=== PATIENT | female | born 1960 | race Caucasian/White ===

== ENCOUNTER → 2017-01-21 | Outpatient (CLI) | payer OTHER ==
--- NOTE | 2017-01-22 13:04 | MM ---
Reason for exam: screening (asymptomatic). Last mammogram was performed 12 years ago. History: Patient is nulliparous. Family history of breast cancer in cousin. Physical Findings: A clinical breast exam by your physician is recommended on an annual basis and results should be correlated with mammographic findings. MG 3D Screening Mammo W/Cad Bilateral CC, MLO, and XCCL view(s) were taken. Prior study comparison: January 18, 2005, bilateral screening mammogram w/CAD. There are scattered fibroglandular densities. Partially visualized 5mm asymmetry at posterior depth on right breast 9 cm from nipple. ASSESSMENT: Incomplete: need additional imaging evaluation, BI-RAD 0 RECOMMENDATION: Special view mammogram of the right breast. If lesion persists on supplemental views, image directed ultrasound is recommended. [facility] will attempt to contact patient to return for supplemental views and ultrasound if indicated.
== END ==
LOC: RADMAMWWP 16:29
PROVIDERS: ATTEND Obstetrics & Gynecology
DX: Z12.31 Encounter for screening mammogram for malignant neoplasm of breast (principal)
CPT/HCPCS: 77063; G0202

== ENCOUNTER → 2017-11-25 | Outpatient (CLI) | payer OTHER ==
--- NOTE | 2017-11-25 19:11 | CONS ---
CONSULTATION REASON FOR CONSULTATION: Obstructive sleep apnea. Yesenia is a 57. Diagnosed having obstructive sleep apnea more than 10 years ago. Back then she was given diagnosis of mild disease and she was given apnea score between 8- 10. She was given CPAP therapy for which she used for 1-1/2 years and she ended up quitting the treatment due to concerns of unable to keep her mask and equipment clean. As such, she has been off treatment for the past 8 years. Her condition has gotten worse. It has become more sleepy and tired during the day. Her sleep quality has also gotten worse as the patient reports sleep fragmentation, frequent nocturnal arousals. She is snoring. She does not have a bed partner at this point in time. She is having excessive fatigue and sleepiness during the day. 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 She never falls asleep while driving. She has never been involved in a motor vehicle accident. At work she feels tired and fatigued and somewhat foggy yet does not fall asleep during meetings. She is able to concentrate well for the time being. She goes to bed around 10 to 11:00 p.m. and wakes up somewhere between 5 to 6 am in the morning. She is requesting to have a re-evaluation regarding obstructive sleep apnea knowing that her tiredness and sleepiness have gotten worse. No nightmares. No sleepwalking or sleep talking. No restlessness in lower extremities. PAST MEDICAL HISTORY: 1. Obstructive sleep apnea. 2. Acid reflux. SURGICAL HISTORY: Negative. DRUG ALLERGIES: Not known. OUTPATIENT MEDICATIONS: Nexium. SOCIAL HISTORY: No alcoholism. Smokers. No history of IV drugs. FAMILY HISTORY: Negative for sleep apnea. REVIEW OF SYSTEMS: 12-point review of system was done. Denies having any nocturia. No grinding of the teeth. No anxiety or panic attacks. No palpitations. No sweating. No restlessness in lower extremities. No carotid depression at this point. No difficulty with memory or concentration. No history of any motor vehicle accidents. No sleep paralysis. No hallucinations. No cataplexy. No nocturnal heartburn. No nocturnal chest pain. No nocturnal shortness of breath. PHYSICAL EXAMINATION: BP is 139/96, pulse 93, respirations 16, temperature 97.1, saturation 96% on room air. Weight is 279. Height is 5 feet 4 inches and BMI is 47.8. Neck size 15 inches. GENERAL APPEARANCE: Calm, comfortable, obese. Head is atraumatic, normocephalic. Neck is Mallampati class IV. Short neck. Crowding of posterior pharynx. LUNGS: Clear to auscultation. HEART: Sounds regular rhythm. Normal S1, S2. No S3. No murmurs. ABDOMEN: Soft, nontender. No organomegaly. EXTREMITIES: No edema. No cyanosis or clubbing. NEUROLOGICALLY: The patient is alert and oriented x3. There is no focal neurological deficits. PSYCHIATRIC: Negative for anxiety or depression. SKIN: Negative for any wounds or ulceration. IMPRESSION: 1. Symptomatic obstructive sleep apnea. The patient was diagnosed more than 10 years ago and her condition has gotten worse. She is coming in for re-evaluation. Her interval history is positive for 15-20 pounds weight gain over the past 10 years. 2. Hypersomnia under investigation. [place] score is 8. Rule out underlying obstructive sleep apnea. 3. Obesity BMI of 47.8. 4. Acid reflux. PLAN: 1. Recommend weight loss. 2. Implement good sleep hygiene measures. 3. The patient has a component of insufficient sleep syndrome. I would like to ask her to extend her sleep hours if possible to an average of 7-8 hours of sleep per night. 4. Re-evaluate this patient with another polysomnogram to assess the severity of the disease and recommend treatment accordingly. MMGEETHAL / IJN: [id number] /
== END | disposition home or self-care (01) ==
LOC: SLEEP 15:29
PROVIDERS: ATTEND Internal Medicine Critical Care Medicine
DX: G47.33 Obstructive sleep apnea (adult) (pediatric) (principal); K21.9 Gastro-esophageal reflux disease without esophagitis; F17.200 Nicotine dependence, unspecified, uncomplicated; E66.9 Obesity, unspecified; Z68.42 Body mass index [BMI] 45.0-49.9, adult; Z99.89 Dependence on other enabling machines and devices
CPT/HCPCS: 99211

== ENCOUNTER → 2018-05-12 | Outpatient (CLI) | payer OTHER ==
--- NOTE | 2018-05-12 18:37 | PN ---
PROGRESS NOTE This 57-year-old female patient, has mild obstructive sleep apnea with an AHI of 12 and currently she is on a BiPAP machine with a minimum of 5 and a maximum of 10 and she is coming in for a compliancy check. She is feeling great. She is much more improved and she is refreshed during the day without any hypersomnia or sleepiness. She is using an Air Fit F20 full face mask and she is looking for alternatives. The compliance data indicated the patient has been utilizing his CPAP 7.3 hours per night. Leak is 11 L/minutes. AHI is down to 1.9. CPAP use for more than 4 hours 23 out of 30 days. Absolutely no complaints for now. Weight has been stable at 279. No hypersomnia or sleepiness during the day. [place] score is down to 5. REVIEW OF SYSTEMS: 12-point review of system was done. Positive findings are mentioned above history of present illness. Currently asymptomatic. PHYSICAL EXAMINATION: BP is 186/87, pulse 83, respirations 16, temperature is 97.5, weight 282. GENERAL APPEARANCE: Calm comfortable. Head is atraumatic, normocephalic. NECK: Supple. No JVD. No goiter or neck mass. LUNGS: Clear to auscultation. HEART: Sounds regular rate and rhythm. Normal S1, S2. No S3. No murmurs. ABDOMEN: Soft, nontender. No organomegaly. EXTREMITIES: No edema. No cyanosis or clubbing. NEUROLOGIC: A and O x3. There is no focal neurological deficits. IMPRESSION: 1. Obstructive sleep apnea. Symptomatic. Mild in nature with an AHI of 12.4, worse during REM. The patient underwent successful APAP treatment. 2. Hypersomnia [place] score is down to 5. 3. Obesity with a BMI of 47.8. 4. Acid reflux. PLAN: Treatment is successful. The patient is benefitting from the treatment. Encourage weight loss. Continue same CPAP settings. I tried the patient on a DreamWear nose mask which she liked at a small size and she is going to try and report to me back if this is the mask of choice that she would like to use in the future. For the most part, her treatment was successful. There were no issues for now. MMODL / IJN: [id number] /
== END | disposition home or self-care (01) ==
LOC: SLEEP 16:43
PROVIDERS: ATTEND Internal Medicine Critical Care Medicine
DX: G47.33 Obstructive sleep apnea (adult) (pediatric) (principal); G47.52 REM sleep behavior disorder; E66.9 Obesity, unspecified; K21.9 Gastro-esophageal reflux disease without esophagitis; Z68.42 Body mass index [BMI] 45.0-49.9, adult

== ENCOUNTER → 2020-02-08 | Outpatient (CLI) | payer OTHER ==
--- NOTE | 2020-02-08 17:19 | PN ---
PROGRESS NOTE Yesenia is 59, who is coming in for a routine check regarding HER BOUBACAR. She is on APAP with a minimum pressure of 5 and a maximum pressure of 10. She has a mild disease with an AHI of 12. She is very happy with her treatment. She is benefitting from CPAP therapy. On average, she is using the machine around 7.4 hours per night with CPAP use for more than 4 hours being above 90%. Her AHI is down to 1 and her leak is around 1 L/minutes. She is using a Dream Wear under the nose nasal mask. She has gained significant amount of weight during the COVID pandemic and her weight is up to 309 pounds. BMI 52.2. Her blood pressure is elevated and she needs to make her primary care physician aware of that here. Her BP is 181/86. Otherwise no other issues for now. [place] score is down to 2. PHYSICAL EXAMINATION: BP is 181/86, pulse 80, respirations 16, temperature 98.7, saturation 99% on room air. BMI is 52.2. Weight is 309. GENERAL APPEARANCE: Calm, comfortable, obese. HEAD: Atraumatic, normocephalic. NECK: Supple, there is no JVD. No goiter or neck masses. LUNGS: Clear to auscultation. HEART: Heart sounds are regular rate and rhythm, normal S1, S2. ABDOMEN: Soft, nontender, no organomegaly. EXTREMITIES: No edema, no cyanosis or clubbing. IMPRESSION: 1. BOUBACAR, mild in severity, AHI of 12, currently on CPAP in an APAP mode with successful clinical response and excellent compliancy. 2. Obesity with interval significant amount of weight gain in the order of 20 pounds, current BMI 52.2. 3. Hypersomnia, recovered. 4. Hypertension. PLAN: 1. Contact PCP regarding blood pressure. 2. Weight loss. 3. Keep CPAP therapy at same level of pressure. 4. See me back in a year's time in followup. No need for any adjustments on her machine. Keep same mask interface. Will continue to follow. MMODL / IJN: [id number] /
== END | disposition home or self-care (01) ==
LOC: SLEEP 16:14
PROVIDERS: ATTEND Internal Medicine Critical Care Medicine
DX: G47.33 Obstructive sleep apnea (adult) (pediatric) (principal); E66.9 Obesity, unspecified; Z68.43 Body mass index [BMI] 50.0-59.9, adult; I10 Essential (primary) hypertension; Z99.89 Dependence on other enabling machines and devices

== ENCOUNTER → 2021-12-11 | Outpatient (CLI) | payer OTHER ==
--- NOTE | 2021-12-12 07:47 | PN ---
PROGRESS NOTE Yesenia is 61, coming [facility] This is her followup visit. Last evaluation was done in February of 2020. The patient is known to have obstructive sleep apnea and she remains on APAP device. Her baseline AHI is at 12, and the patient is utilizing an APAP device with a minimum pressure of 5 and a maximum pressure of 15. Since her last evaluation, she has lost weight. She used to weigh around 309 pounds and currently she is down to 289. She is extremely compliant for APAP machine and she has utilized her machine more than 4 hours 100% of the time. The P90 pressure is at 9.9 and the patient's leak factor is around 4 L/minute and her AHI is down to 2.0. The patient is using a DreamWear under the nose medium- sized nose mask. As usual, the blood pressure was elevated at the time of admission here to the clinic. Subsequent followup on her blood pressure revealed that the blood pressure dropped from 173/112 to 150/82. This may be a white coat effect. Otherwise, she feels great. She is not having any major hypersomnia or sleepiness during the day. No headaches. No tiredness or fatigue while on treatment. Treatment is successful. She is also exploring alternative masks. She is unable to use a full-face mask and she is looking for other nasal mask. REVIEW OF SYSTEMS: 14-point review of system was done. Positive for weight loss. No fever. No chills. No headaches. No altered mentation. No other complaints. PHYSICAL EXAMINATION: VITAL SIGNS: BP is 173/112, dropped down to 150/82, pulse 84, respirations 16, temperature 97.9, saturation 97% on room air. Height is 5 feet 4 inches, weight is 289, BMI is 49.6. GENERAL APPEARANCE: Obese, calm, comfortable. HEAD: Atraumatic, normocephalic. NECK: Supple. No JVD. No goiter or neck masses. Mallampati class 4. LUNGS: Diminished, otherwise clear. HEART: Sounds regular, rhythm normal S1, S2. No murmurs. ABDOMEN: Soft, nontender. No organomegaly. EXTREMITIES: No edema, cyanosis, or clubbing. IMPRESSION: 1. Symptomatic obstructive sleep apnea AHI of 12 and the patient is successfully treated with an APAP machine. 2. Chronic hypersomnia, improved. 3. Hypertension, possibly a white coat effect. PLAN: 1. Encourage further weight loss. Current weight is down to 289. 2. Offer the patient AirFit N30I small-sized nasal mask. 3. Use the DreamWear under the nose as an alternative mask medium size. 4. Treatment is successful. No need for any adjustment in the pressure setting. The patient will see me back here in the office in a year's time. Treatment is successful for now. No other issues for now. MMODL / IJN: [id number] / MTDD
== END ==
LOC: SLEEP 15:19
PROVIDERS: ATTEND Internal Medicine Critical Care Medicine
DX: G47.33 Obstructive sleep apnea (adult) (pediatric) (principal); Z99.89 Dependence on other enabling machines and devices; I10 Essential (primary) hypertension

== ENCOUNTER 2022-09-08 17:58 | Emergency (ER) | payer BC, OTHER ==
[2022-09-08 18:55] VITALS: RESP 14
--- NOTE | 2022-09-08 19:13 | US ---
EXAMINATION TYPE: US venous doppler duplex LE RT DATE OF EXAM: 09/08/2022 6:56 PM COMPARISON: NONE CLINICAL INDICATION: Female, 61 years old with history of pain; Redness and lump thigh area. SIDE PERFORMED: Right TECHNIQUE: The lower extremity deep venous system is examined utilizing real time linear array sonog leonardo with graded compression, doppler sonography and color-flow sonography. VESSELS IMAGED: Common Femoral Vein Deep Femoral Vein Greater Saphenous Vein * Femoral Vein Popliteal Vein Small Saphenous Vein * Proximal Calf Veins (* superficial vessels) Right Leg: Thrombus visualized in Greater Saphenous Vein from mid thigh down through ankle. Grayscale, color doppler, spectral doppler imaging performed of the deep veins of the lower extremiti es. There is normal flow, compressibility, vascular waveforms. IMPRESSION: 1. No evidence for right lower extremity deep vein thrombosis. 2. Superficial thrombus of the greater saphenous vein.
[2022-09-08 19:24] VITALS: PULSE 76
[2022-09-08] MEDS ORDERED: APIXABAN 5 MG TAB PO STA (19:35)
--- NOTE | 2022-09-08 19:37 | ED ---
General Adult HPI - General Chief complaint: Extremity Injury, Lower Stated complaint: poss blood clot R leg Time Seen by Provider: 09/08/22 18:10 Source: patient Mode of arrival: ambulatory Limitations: no limitations - History of Present Illness Initial comments: Patient is a 61-year-old female who presents to the emergency department for possible DVT in right leg. Patient noticed swelling and nodule in her right lower thigh about a week ago which has been worsening. She reports mild pain in the region and calf mostly with walking. She went to urgent care and was sent to the emergency department for possible DVT. She denies history of DVT and PE. Denies hormone replacement, long car rides, airplane travel, surgical interventions, known cancers, family history of clotting, tobacco use. 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 She denies chest pain and shortness of breath. She is not on blood thinners. - Related Data Previous Rx's Medication Instructions Recorded Apixaban [Eliquis Starter Pack 0 mg PO DIRECTED 30 Days #1 09/08/22 (for VTE)] packet Allergies Allergy/AdvReac Type Severity Reaction Status Date / Time No Known Allergies Allergy Verified 09/08/22 18:06 Review of Systems ROS Statement: Those systems with pertinent positive or pertinent negative responses have been documented in the HPI. ROS Other: All systems not noted in ROS Statement are negative. Past Medical History Past Medical History: Hypertension History of Any Multi-Drug Resistant Organisms: None Reported Past Surgical History: No Surgical Hx Reported Past Psychological History: No Psychological Hx Reported Smoking Status: Never smoker Past Alcohol Use History: Occasional Past Drug Use History: None Reported General Exam Limitations: no limitations General appearance: alert, in no apparent distress Head exam: Present: atraumatic, normocephalic, normal inspection Eye exam: Present: normal appearance, PERRL, EOMI. Absent: scleral icterus, conjunctival injection, periorbital swelling Cardiovascular Exam: Present: regular rate, normal rhythm, normal heart sounds. Absent: systolic murmur, diastolic murmur, rubs, gallop, clicks GI/Abdominal exam: Present: soft, normal bowel sounds. Absent: distended, tenderness, guarding, rebound, rigid Extremities exam: Present: full ROM, normal capillary refill, calf tenderness (right), other (palpable nodule over right distal inner thigh and calf with mild overlying erythema. No warmth minimal tenderness) Neurological exam: Present: alert, oriented X3, CN II-XII intact Psychiatric exam: Present: normal affect, normal mood Skin exam: Present: warm, dry, intact, normal color. Absent: rash Course Vital Signs 09/08/22 09/08/22 09/08/22 18:04 18:51 19:22 Temperature 98 F Pulse Rate 80 73 76 Respiratory 20 14 14 Rate Blood Pressure 160/87 161/97 O2 Sat by Pulse 99 98 99 Oximetry 09/08/22 20:12 Temperature 97.9 F Pulse Rate 76 Respiratory 14 Rate Blood Pressure 151/87 O2 Sat by Pulse 99 Oximetry Medical Decision Making - Medical Decision Making Was pt. sent in by a medical professional or institution (, PA, [employer]UB INFORMATION CLERK, urgent care, hospital, or halfway...) When possible be specific @ -Urgent care prior to arrival Did you speak to anyone other than the patient for history (EMS, parent, family, police, friend...)? What history was obtained from this source @ -No Did you review nursing and triage notes (agree or disagree)? Why? @ -I reviewed and agree with nursing and triage notes Were old charts reviewed (outside hosp., previous admission, EMS record, old EKG, old radiological studies, urgent care reports/EKG's, halfway records)? Report findings @ -No old charts were reviewed Differential Diagnosis (chest pain, altered mental status, abdominal pain women, abdominal pain men, vaginal bleeding, weakness, fever, dyspnea, syncope, headache, dizziness, GI bleed, back pain, seizure, CVA, palpatations, mental health)? @ -Superficial thrombophlebitis, DVT, cellulitis. This list is not meant to be an alternative list EKG interpreted by me (3pts min.). @ -As above X-rays interpreted by me (1pt min.). @ -None done CT interpreted by me (1pt min.). @ -None done U/S interpreted by me (1pt. min.). @ No. Ultrasound report shows no evidence of DVT. There is superficial thrombus from the greater saphenous vein in mid thigh down to the ankle What testing was considered but not performed or refused? (CT, X-rays, U/S, labs )? Why? @ -None What meds were considered but not given or refused? Why? @ -None Did you discuss the management of the patient with other professionals (professionals i.e. DrCirilo, PA, [employer] INFORMATION CLERK, lab, RT, psych nurse, professor of social work, community cultural development officer, teacher, front desk officer, renal case manager)? Give summary @ Discussed case with Dr. Jeffrey who recommends treating as DVT Was smoking cessation discussed for >3mins.? @ -No Was critical care preformed (if so, how long)? @ -No Were there social determinants of health that impacted care today? How? (Homelessness, low income, unemployed, alcoholism, drug addiction, transportation, low edu. Level, literacy, decrease access to med. care, long-term, rehab)? @ -No Was there de-escalation of care discussed even if they declined (Discuss DNR or withdrawal of care, Hospice)? DNR status @ -No What co-morbidities impacted this encounter? (DM, HTN, Smoking, COPD, CAD, Cancer, CVA, ARF, Chemo, Hep., AIDS, mental health diagnosis, sleep apnea, morbid obesity)? @ -None Was patient admitted / discharged? Hospital course, mention meds given and route, prescriptions, significant lab abnormalities, going to OR and other pertinent info. @ -Patient presenting for possible DVT. Ultrasound report shows no evidence of DVT. There is superficial thrombus from the greater saphenous vein in mid thigh down to the ankle. Discussed case with Dr. Jeffrey thrombus is close to the deep system patient will be treated with Eliquis. Discussed superficial thrombophlebitis and DVT with patient. She has no contraindications to blood thinners. We discussed risks of blood thinner use. Patient will follow up with vascular in the office this week for repeat ultrasound and further management. Undiagnosed new problem with uncertain prognosis? @ -No Drug Therapy requiring intensive monitoring for toxicity (Heparin, Nitro, Insulin, Cardizem)? @ -No Were any procedures done? @ -No Diagnosis/symptom? @ -superficial thrombophlebitis Acute, or Chronic, or Acute on Chronic? @ -acute Uncomplicated (without systemic symptoms) or Complicated (systemic symptoms)? @ -uncomplicated Side effects of treatment? @ -No Exacerbation, Progression, or Severe Exacerbation? @ -No Poses a threat to life or bodily function? How? (Chest pain, [place], [place], pneumonia, PE, COPD, DKA, ARF, appy, cholecystitis, CVA, Diverticulitis, Homicidal, Suicidal, threat to staff... and all critical care pts) @ -No Dr. Adam is my attending Disposition Clinical Impression: Superficial thrombophlebitis Disposition: HOME SELF-CARE Condition: Good Instructions (If sedation given, give patient instructions): Superficial Thr ombophlebitis (ED), Deep Vein Thrombosis (ED), Blood Thinners (ED) Additional Instructions: Take medication as directed. Please follow-up with vascular specialist in 1-2 days. Return to the emergency department if you experience new, concerning, or worsening symptoms. Prescriptions: Apixaban [Eliquis Starter Pack (for VTE)] 0 mg PO DIRECTED 30 Days #1 packet Is patient prescribed a controlled substance at d/c from ED?: No Referrals: Tom Rosenberg Jr, DO [Primary Care Provider] - 1-2 days Davian Jeffrey DO [Doctor of Osteopathic Medicine] - 1-2 days
[2022-09-08 20:14] VITALS: BP 151/87; TEMP 97.9
== END 2022-09-08 20:15 | disposition home or self-care (01) ==
LOC: EC 17:58
DX: I80.01 Phlebitis and thrombophlebitis of superficial vessels of right lower extremity (principal); I10 Essential (primary) hypertension
CPT/HCPCS: 99283

== ENCOUNTER → 2024-02-18 | Outpatient (CLI) | payer BC ==
--- NOTE | 2024-02-21 19:19 | MM ---
Reason for Exam: Screening (asymptomatic). Last mammogram was performed 7 year(s) and 1 month(s) ago. Patient History: Menarche at age 13. Patient has no children. Postmenopausal. Paternal cousin had breast cancer, age 51. Risk Values: Gwendolyn 5 year model risk: 1.8%. NCI Lifetime model risk: 8.6%. Prior Study Comparison: 01/18/2005 Bilateral Screening Mammogram, [facility]. 01/21/2017 Bilateral Screening Mammogram, [facility]. 01/29/2017 Right Diagnostic Mammogram, [facility]. Tissue Density: The breasts are almost entirely fatty. Findings: Analyzed By CAD. The pattern is symmetrical. No significant interval change is evident. Small benign calcifications left breast. No suspicious groups of microcalcifications, spiculated or lobular masses, architectural distortion or other secondary signs of malignancy are mammographically apparent. Overall Assessment: Benign, BI-RAD 2 Management: Screening Mammogram of both breasts in 1 year. A negative mammogram report should not preclude additional follow up of suspicious palpable abnormalities. Patient should continue monthly self breast exam. A clinical breast exam by your physician is recommended on an annual basis and results should be correlated with mammographic findings. Note on Gwendolyn scores and lifetime risk: 1. A G[place]olyn score greater than 3% is considered moderate risk. If this is the case, consider specialist referral to assess eligibility for a risk reducing agent. 2. If overall lifetime risk for the development of breast cancer is 20% or higher, the patient may qualify for future screening with alternating mammogram and breast MRI. [facility], , 02/21/2024 7:17 PM. Electronically signed and approved by: Ronni Jordan D.O. Radiologis
== END | disposition home or self-care (01) ==
LOC: RADMAMWWP 06:52
PROVIDERS: ATTEND Family Medicine
DX: Z12.31 Encounter for screening mammogram for malignant neoplasm of breast (principal); Z78.0 Asymptomatic menopausal state; Z80.3 Family history of malignant neoplasm of breast
CPT/HCPCS: 77063; 77067